=== PATIENT | male | born 1955 | race Caucasian/White ===

== ENCOUNTER 2020-05-12 00:14 | Emergency (ER) | payer MEDICARE ==
--- NOTE | 2020-05-12 00:35 | EDM.PDOC ---
ED HPI GENERAL MEDICAL PROBLEM - General Chief Complaint: Neuro Symptoms/Deficits Stated Complaint: MEDICAL VIA [facility] Time Seen by Provider: 05/12/20 00:25 Source of Information: Reports: Patient, Family, RN History Limitations: Reports: Other (no old records) - History of Present Illness INITIAL COMMENTS - FREE TEXT/NARRATIVE: 64 yo male with a pHx of afib developed CVA sx's this morning at home and EMS was contacted and was in the process of transporting him to the airport for a flight to [place] when the patient decided he didn't want to go. His sx's gradually worsened over the course of the day per he and his until he fell tonight and was unable even with his 's help to get him off the floor. His sx's include speech that is slightly slurred, L arm weakness/poor coordination, and L leg weakness. His only anticoagulant is ASA. No chest pain or LINDO. Onset: Today, Gradual Onset Date: 05/11/20 Onset Time: 07:20 Duration: Hour(s):, Getting Worse Location: Reports: Face (mouth), Upper Extremity, Left, Lower Extremity, Left Quality: Reports: Other (no pain) Severity: Moderate Improves with: Reports: None Worsens with: Reports: Other (time) Context: Reports: Other (See HPI) Associated Symptoms: Reports: No Other Symptoms. Denies: Chest Pain Treatments [employer]: Reports: EKG, Other (see below) (none) - Related Data Allergies Allergy/AdvReac Type Severity Reaction Status Date / Time No Known Allergies Allergy Verified 05/12/20 00:20 Home Meds: Home Meds Albuterol [Ventolin HFA] 2 puff INH ASDIRECTED PRN 05/12/20 [History] Aspirin/Caffeine [Anacin 400-32 mg Tablet] 1 tab PO DAILY 05/12/20 [History] Azelastine HCl 2 spray NASBOTH BID 05/12/20 [History] Fluticasone/Vilanterol [Breo Ellipta 100-25 MCG Inhalation Kit] 1 puff INH DAILY 05/12/20 [History] Lisinopril/Hydrochlorothiazide [Lisinopril-Hctz 20-25 mg Tab] 1 tab PO DAILY 05/12/20 [History] Loratadine [Allergy] 10 mg PO DAILY 06/23/20 [History] Magnesium Chloride [Mag-64] 1 tab PO DAILY 05/12/20 [History] Metoprolol Succinate [Toprol XL] 25 mg PO DAILY 05/12/20 [History] Montelukast [Singulair] 1 tab PO DAILY 05/12/20 [History] Multivit-Min/FA/Lycopen/Lutein [Complete Multi 50+] 1 tab PO DAILY 05/12/20 [History] Umeclidinium [place] [Incruse Ellipta*] 1 puff INH DAILY 05/12/20 [History] lisinopriL [Lisinopril] 20 mg PO DAILY 05/12/20 [History] Social & Family History - Tobacco Use Smoking Status *Q: Current Every Day Smoker Years of Tobacco use: 45 Packs/Tins Daily: 1.5 - Caffeine Use Caffeine Use: Reports: Coffee - Alcohol Use Days Per Week of Alcohol Use: 7 Number of Drinks Per Day: 4 Total Drinks Per Week: 28 - Recreational Drug Use Recreational Drug Use: Yes Recreational Drug Type: Reports: Marijuana/Hashish Recreational Drug Use Frequency: Daily ED ROS GENERAL - Review of Systems Review Of Systems: See Below Constitutional: Reports: No Symptoms HEENT: Reports: No Symptoms Respiratory: Reports: No Symptoms Cardiovascular: Reports: Palpitations (chronic afib) GI/Abdominal: Reports: No Symptoms : Reports: No Symptoms Musculoskeletal: Reports: No Symptoms Skin: Reports: No Symptoms Neurological: Reports: Trouble Speaking (some slurring of speech), Weakness (L arm and leg), Change in Speech Psychiatric: Reports: No Symptoms ED EXAM, NEURO - Physical Exam Exam: See Below Exam Limited By: No Limitations General Appearance: Alert, WD/WN, Mild Distress Eye Exam: Bilateral Eye: EOMI, Normal Inspection, PERRL Ears: Normal External Exam, Normal Canal, Hearing Grossly Normal, Normal TMs Nose: Normal Inspection, No Blood Throat/Mouth: Normal Inspection, Normal Lips, Normal Oropharynx, No Airway Compromise. No: Normal Voice (mild slurring) Head Exam: Atraumatic, Normocephalic Neck: Normal Inspection Respiratory/Chest: No Respiratory Distress, Lungs Clear, Normal Breath Sounds, No Accessory Muscle Use Cardiovascular: No Edema, Irregularly Irregular. No: Tachycardia GI/Abdominal: Normal Bowel Sounds, Soft, Non-Tender, No Distention Neurological: Alert, Normal Mood/Affect, Normal Plantar Flexion, Normal Reflexes, Oriented x 3. No: Normal Gait, No Motor/Sensory Deficits (L leg weakness and L arm weakness) Back Exam: Normal Inspection Extremities: Normal Inspection, Normal Range of Motion, Non-Tender, No Pedal Edema Psychiatric: Normal Affect, Normal Mood Skin Exam: Warm, Dry, Intact, Normal Color, No Rash Course - Vital Signs Last Recorded V/S: Last Vital Signs Temp 36.1 C 05/12/20 00:16 Pulse 84 05/12/20 00:16 Resp 20 05/12/20 00:16 BP 146/87 H 05/12/20 00:16 Pulse Ox 92 L 05/12/20 00:16 - Orders/Labs/Meds Orders: Active Orders 24 hr Category Date Time Status Cardiac Monitoring [RC] .As Directed Care 05/12/20 00:23 Active UA W/MICROSCOPIC [URIN] Stat Lab 05/12/20 00:24 Ordered Labs: Laboratory Tests 05/12/20 05/12/20 Range/Units 00:10 00:10 WBC 8.1 (4.5-11.0) K/uL RBC 5.04 (4.30-5.90) M/uL Hgb 16.9 H (12.0-15.0) g/dL Hct 49.6 (40.0-54.0) % MCV 98 (80-98) fL MCH 34 H (27-31) pg MCHC 34 (32-36) % Plt Count 191 (150-400) K/uL Sodium 133 L (140-148) mmol/L Potassium 3.5 L (3.6-5.2) mmol/L Chloride 95 L (100-108) mmol/L Carbon Dioxide 23 (21-32) mmol/L Anion Gap 18.5 H (5.0-14.0) mmol/L BUN 11 (7-18) mg/dL Creatinine 1.1 (0.8-1.3) mg/dL Est Cr Clr Drug Dosing 61.76 mL/min Estimated GFR (MDRD) > 60 (>60) Glucose 166 H (74-106) mg/dL Calcium 8.8 (8.5-10.1) mg/dL Troponin I < 0.017 (0.000-0.056) ng/mL - Radiology Interpretation Free Text/Narrative:: Head CT scan- CT Results Date: 05/12/20 Departure - Departure Time of Disposition: 01:45 Disposition: DC/Tfer to Acute Hospital 02 Condition: Serious Clinical Impression: Chronic atrial fibrillation CVA (cerebral vascular accident) Qualifiers: CVA mechanism: unspecified Qualified Code(s): I63.9 - Cerebral infarction, unspecified - Discharge Information *PRESCRIPTION DRUG MONITORING PROGRAM REVIEWED*: Not Applicable *COPY OF PRESCRIPTION DRUG MONITORING REPORT IN PATIENT ADRI: Not Applicable Referrals: PCP,None [Primary Care Provider] - Forms: ED Department Discharge Sepsis Event Note (ED) - Evaluation Sepsis Screening Result: No Definite Risk - Focused Exam Vital Signs: Vital Signs Temp Pulse Resp BP Pulse Ox 05/12/20 00:16 36.1 C 84 20 146/87 H 92 L - My Orders Last 24 Hours: My Active Orders 05/12/20 00:23 Cardiac Monitoring [RC] .As Directed 05/12/20 00:24 UA W/MICROSCOPIC [URIN] Stat - Assessment/Plan Last 24 Hours: My Active Orders 05/12/20 00:23 Cardiac Monitoring [RC] .As Directed 05/12/20 00:24 UA W/MICROSCOPIC [URIN] Stat
--- NOTE | 2020-05-12 01:24 | CRLCT ---
INDICATION: Left-sided weakness TECHNIQUE: CT head without contrast. COMPARISON: None. FINDINGS: CSF spaces: Within normal limits for age. Brain parenchyma: Mild cerebral atrophy with some low density in the deep white matter. Loss of rodriguez-white differentiation along the insular cortex extending to the right frontoparietal region. No intracranial bleed or mass effect. Skull base and calvarium: The visualized paranasal sinuses and mastoid air cells demonstrate no acute or significant findings. The visualized orbits are grossly unremarkable. No skull fractures. Atherosclerosis. IMPRESSION: 1. Loss of rodriguez-white differentiation at the right insular cortex extending to the right frontoparietal region. Appearance is consistent with an infarction, possibly subacute time course. No bleed or mass effect. Discussed with Dr. Tan at 0121 on 05/12/[address] note that all CT scans at this facility use dose modulation, iterative reconstruction, and/or weight-based dosing when appropriate to reduce radiation dose to as low as reasonably achievable. Dictated by Adam Rodriguez MD @ May 12 2020 1:18AM Signed by Dr. Adam Rodriguez @ May 12 2020 1:24AM
== END 2020-05-12 02:23 ==
LOC: JP.ED 00:14
DX: I63.9 Cerebral infarction, unspecified (principal); I48.20 Chronic atrial fibrillation, unspecified; F17.210 Nicotine dependence, cigarettes, uncomplicated; Z79.82 Long term (current) use of aspirin; Z79.899 Other long term (current) drug therapy
CPT/HCPCS: 36415; 70450; 80048; 81001; 84484; 85027; 99285-25